=== PATIENT | female | born 1985 | race Hispanic/Latino ===

== ENCOUNTER 2016-08-22 15:38 | Emergency (ER) | payer SELFPAY ==
[2016-08-22 16:23] VITALS: BP 161/98
== END 2016-08-22 19:25 | disposition left against medical advice (07) ==
LOC: ED 15:38
DX: S90.02XA Contusion of left ankle, initial encounter (principal); M25.571 Pain in right ankle and joints of right foot; M79.89 Other specified soft tissue disorders; Z53.21 Procedure and treatment not carried out due to patient leaving prior to being seen by health care provider; X58.XXXA Exposure to other specified factors, initial encounter; Y93.9 Activity, unspecified; Y92.9 Unspecified place or not applicable; Y99.9 Unspecified external cause status